=== PATIENT | male | born 1960 | race Caucasian/White ===

== ENCOUNTER 2016-09-11 13:22 | Emergency (ER) | payer MEDICARE | END 2016-09-11 16:19 | disposition left against medical advice (07) | LOC: D.ER 13:22 | DX: R52 Pain, unspecified (principal) ==

== ENCOUNTER → 2017-05-02 10:04 | Outpatient (CLI) | payer MEDICARE ==
[2017-05-03 13:16] LABS: ANA REFLEX - DIRECT Negative (Negative)
== END | disposition home or self-care (01) ==
LOC: D.RT 08:00 → D.CT 09:30 → D.RT 10:04
PROVIDERS: Internal Medicine Pulmonary Disease
DX: R91.1 Solitary pulmonary nodule (principal)